=== PATIENT | male | born 1970 | race Caucasian/White ===

== ENCOUNTER → 2017-02-24 | Outpatient (CLI) | payer BC ==
--- NOTE | 2017-02-25 09:14 | PN ---
DATE OF SERVICE: 02/24/17 A 47-year-old gentleman who had been followed in the [facility] for treatment of obstructive sleep apnea-hypopnea syndrome. Patient successfully continued to use his CPAP unit. CPAP unit is about 8 years old. Does not show apnea- hypopnea index. According to patient, he feels well, does not snore. His weight is 23 pounds less than the visit in 2015. [place] Sleepiness scale is 4. MEDICATIONS: Zyrtec, levothyroxine, losartan, testosterone. During physical exam, patient in no distress. BP 133/78, HR 74, RR 16, height 5, 10, weight 281, BMI 40.3, temp 97.1, oxygen saturation from room air 97%. OROPHARYNX: Extremely low position of soft palpate. ABDOMEN: Obese. HEENT: PERRLA, EOMI. Evaluation of oropharynx showed tongue protrudes midline. NECK: Supple, No JVD. Thyroid is not palpable. LUNGS: Clear to percussion and to auscultation. Good air exchange. No wheezing or rhonchi. HEART: S1, s2 regular. No murmurs, gallops or rubs. EXTREMITIES: No clubbing or cyanosis. CONDUCTOR PULLMAN: Awake, alert, and oriented x3. Cranial nerves 2 to 7 intact. There is no fasciculation or atrophy noted. No focal deficits observed. IMPRESSION: 1. Obstructive sleep apnea-hypopnea syndrome in severe range. Patient continued to use CPAP equipment every night for the whole night. 2. Obesity. Patient lost about 23 pounds. 3. Hypertension. 4. 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 5. Status post nasal surgery about 6 years ago. 6. Status post left biceps tendon surgery. 7. Status post left elbow tendon surgery. PLAN: 1. Continue treatment with CPAP every night. 2. Prescription for all necessary CPAP supplies. 3. Prescription for new automatic CPAP machine unit. 4. No driving if feeling any sleepiness. 5. Sleep hygiene with regular time in bed for at least 8 hours. Thank you very much for allowing me to participate in the management of your patient. Sincerely, Meng Delaney MD, PhD, FAASM. Diplomat of [place] [employer], Sleep Medicine Board by [place] [employer] [place] [employer] Dispatcher of [facility] [place] [facility]
== END | disposition home or self-care (01) ==
LOC: SLEEP 16:24
PROVIDERS: ATTEND Internal Medicine
DX: G47.33 Obstructive sleep apnea (adult) (pediatric) (principal); E66.9 Obesity, unspecified; I10 Essential (primary) hypertension

== ENCOUNTER → 2017-04-02 | Outpatient (CLI) | payer BC | LOC: LABWHC1 12:24 | PROVIDERS: ATTEND Internal Medicine | DX: E03.9 Hypothyroidism, unspecified (principal); E29.1 Testicular hypofunction | CPT/HCPCS: 36415; 84402; 84403; 84439; 84443 ==

== ENCOUNTER → 2017-09-08 | Outpatient (CLI) | payer BC ==
--- NOTE | 2017-09-08 11:26 | PN ---
PROGRESS NOTE FOLLOW-UP VISIT DATE OF SERVICE: 09/08/2017 A 47-year-old gentleman had been followed in sleep center for treatment of obstructive sleep apnea-hypopnea syndrome. Patient successfully continued to use his CPAP equipment every night for the whole night without problems related to mask pressure or humidification. I checked his CPAP unit range of the pressure 5 to 15, most of the time pressure is 10.5. The patient demonstrated 100% compliance with treatment 30/30 nights more than 4 hours every 7.7 hours. Apnea-hypopnea index in the range of 2. No sleepiness during the day. [place] Sleepiness Scale is 4. MEDICATIONS: Zantac, levothyroxine, losartan, testosterone. PHYSICAL EXAM: During physical exam, patient in no distress. VITAL SIGNS: BP 135/82, HR 84, RR 16, height 5 feet 9-1/2 inches, weight 280, which is about the same as last year, body mass index 40.7, oxygen saturation room air 96%, temperature 8.2. NECK: Supple, no JVD. Thyroid is not palpable. LUNGS: Clear to percussion and to auscultation. Good air exchange. No wheezing or rhonchi. HEART: S1, S2 regular. No murmurs, gallops, or rubs. ABDOMEN: Obese. EXTREMITIES: No clubbing or cyanosis. FINANCIAL ANALYSIS CONSULTANT: Awake, alert, and oriented X3. Cranial nerves 2 to 7 intact. There is no fasciculation or atrophy. noted. No focal deficits observed. IMPRESSION: 1. Obstructive sleep apnea-hypopnea syndrome. Patient demonstrated 100% compliance with treatment. Respiration on full control with CPAP, benefitting from treatment. 2. Obesity. 3. Hypertension. 4. Status post nasal surgery about 1-1/2 years ago. 5. Status post left elbow tendon surgery. 6. Status post left biceps surgery. 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 PLAN: 1. Continue treatment with CPAP every night. 2. Losing weight. 3. Sleep hygiene with regular time in bed for at least 8 hours. 4. No driving if feeling any sleepiness. 5. Prescription for all necessary CPAP supplies including mask, tube, filters. Thank you very much for allowing me to participate in management of your patient. Sincerely, Meng Delaney MD, PhD, FAASM Diplomat of [place] [employer] Specialties [place] Board [employer] Internal Medicine Product Engineer of [facility] [place] MMODL / LESLIE: [id number] /
== END | disposition home or self-care (01) ==
LOC: SLEEP 10:09
PROVIDERS: ATTEND Internal Medicine
DX: G47.33 Obstructive sleep apnea (adult) (pediatric) (principal); E66.9 Obesity, unspecified; I10 Essential (primary) hypertension; Z87.09 Personal history of other diseases of the respiratory system; Z79.899 Other long term (current) drug therapy; Z99.89 Dependence on other enabling machines and devices; Z98.890 Other specified postprocedural states; Z68.41 Body mass index [BMI] 40.0-44.9, adult

== ENCOUNTER → 2019-09-06 | Outpatient (CLI) | payer BC, OTHER ==
--- NOTE | 2019-09-06 14:19 | CT ---
EXAMINATION TYPE: CT abdomen pelvis wo con DATE OF EXAM: 09/06/2019 COMPARISON: Prior CT dated 08/23/2019 from outside institution HISTORY: Left kidney mass CT DLP: 773.8 mGycm Automated exposure control for dose reduction was used. TECHNIQUE: Helical acquisition of images from the lung bases through the pelvis. FINDINGS: Lack of intravenous contrast compromises sensitivity. LUNG BASES: No significant abnormality is appreciated. AORTA: No significant abnormality is appreciated. LIVER/GB: No significant abnormality is appreciated. PANCREAS: No significant abnormality is seen. SPLEEN: No significant abnormality is seen. ADRENALS: No significant abnormality is seen. KIDNEYS: The left kidney has increased in volume. There is heterogeneity of the posterior aspect of t he left kidney and suggestion of crescentic mixed density, the left kidney measures approximately 12. 3 cm. The upper pole of the left kidney shows a low dense focuse measuring approximately 3.1 cm which I suspect represents a cortical cyst. REPRODUCTIVE ORGANS: No significant abnormality is seen. URINARY BLADDER: No significant abnormality is seen. BOWEL: No significant abnormality is seen. The appendix is normal. FREE AIR: No Free Air is visible. ASCITES: None visible. PELVIC ADENOPATHY: None visualized. RETROPERITONEAL ADENOPATHY: No Retroperitoneal Adenopathy visible. OSSEOUS STRUCTURES: No significant abnormality is seen. IMPRESSION: FINDINGS ARE SUSPICIOUS FOR SUBCAPSULAR HEMATOMA LEFT KIDNEY correlate for appropriate history. Addit ional findings above. A Red level critical message alert has been initiated for Patsy Fung MD via the [employer] Critical Results System on 09/06/2019 2:17 PM. This message alert has been sent to Gaurav Wild via the preferences provided by the clinician for the receipt of Radiology Critical Findings. [employer] ID [id number].
== END | disposition home or self-care (01) ==
LOC: RADCTMAIN 12:35
PROVIDERS: ATTEND Internal Medicine
DX: N28.89 Other specified disorders of kidney and ureter (principal)
CPT/HCPCS: 74176

== ENCOUNTER → 2019-10-12 | Outpatient (CLI) | payer BC, OTHER ==
[2019-10-12 10:57] LABS: African American GFR (CKD) >90 (>60 ml/min/1.73 sqM); Blood Urea Nitrogen 14 mg/dL (9-20); Non-African American GFR(CKD) >90 (>60 ml/min/1.73 sqM)
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
== END | disposition home or self-care (01) ==
LOC: RADCTMAIN 10:19
PROVIDERS: ATTEND Urology
DX: S37.012A Minor contusion of left kidney, initial encounter (principal)
CPT/HCPCS: 82565; 84520; 74170; 36415; Q9967

== ENCOUNTER 2020-05-30 07:41 | Day surgery (SDC) | payer BC, OTHER ==
[~2020-05-30 07:41] MED LIST: LACTATED RINGERS 1,000 ML IV SCH; LIDOCAINE 1% (10MG/ML) FOR IV START INTRADERMA PRN
[2020-05-30] MEDS ORDERED: LACTATED RINGERS 1,000 ML IV ONE ×2 (08:30)
[2020-05-30 08:36] VITALS: RESP 16; TEMP 97.1
[2020-05-30] MEDS ORDERED: PROPOFOL 10 MG/ML 20 ML VIAL IV ONE (09:10)
--- NOTE | 2020-05-30 09:28 | P.PCN ---
Date of Procedure: 05/30/20 Procedure(s) Performed: BRIEF HISTORY: Patient is a 50-year-old pleasant white male scheduled for an elective colonoscopy as a part of evaluation of change in bowel habits. PROCEDURE PERFORMED: Colonoscopy snare polypectomy. PREOPERATIVE DIAGNOSIS: Change in bowel habits. IV sedation per Anesthesia. PROCEDURE: After informed consent was obtained, the patient, was brought into the endoscopy unit. IV sedation was administered by Anesthesia under continuous monitoring. Digital rectal examination was normal. Initially the Olympus CF-160 flexible video colonoscope was then inserted in the rectum, gradually advanced into the cecum without any difficulty. Careful examination was performed as the scope was gradually being withdrawn. Ileocecal valve and the appendiceal orifice were visualized and appeared normal. Prep was excellent. The base of the cecum there was a 5 mm sessile polyp that was removed by snare polypectomy. Mucosa of the cecum, ascending colon, transverse colon, descending colon, sigmoid colon, and rectum appeared normal. Retroflexion was performed in the rectum and no lesi ons were seen. The patient tolerated the procedure well. IMPRESSION: 5 mm sessile cecal polyp status post polypectomy Rest of the colon appeared normal RECOMMENDATIONS: Findings of this examination were discussed with the patient as well as his family. He was advised to with the biopsy results. If the biopsy shows an adenoma he can have a repeat colonoscopy in 5 years
[2020-05-30 10:10] VITALS: BP 120/68; PULSE 73
== END 2020-05-30 10:49 | disposition home or self-care (01) ==
LOC: ORWHC2ENDO 07:41
PROVIDERS: ATTEND Internal Medicine Gastroenterology
DX: D12.0 Benign neoplasm of cecum (principal); Z79.890 Hormone replacement therapy; Z79.899 Other long term (current) drug therapy; I10 Essential (primary) hypertension; G47.33 Obstructive sleep apnea (adult) (pediatric); Z99.89 Dependence on other enabling machines and devices; E07.9 Disorder of thyroid, unspecified
CPT/HCPCS: 45385; 88305; J2704

== ENCOUNTER → 2021-11-19 | Outpatient (CLI) | payer BC ==
--- NOTE | 2021-11-19 15:53 | XR ---
Right finger HISTORY: Pain in right ring finger 2 views of the right finger are submitted, entire hand is included Bone mineralization, joint spaces and alignment are maintained. No fracture or dislocation. IMPRESSION: No significant bony abnormality is evident
== END | disposition home or self-care (01) ==
LOC: RADXRMAIN 14:47
PROVIDERS: ATTEND Internal Medicine
DX: M79.644 Pain in right finger(s) (principal)

== ENCOUNTER → 2024-10-03 | Outpatient (CLI) | payer BC ==
[2024-10-03 13:33] VITALS: BP 148/93; PULSE 77; RESP 12; TEMP 98.7
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
== END ==
LOC: 3 N SLEEP 13:08
PROVIDERS: ATTEND Internal Medicine
DX: G47.33 Obstructive sleep apnea (adult) (pediatric) (principal); E66.9 Obesity, unspecified; I10 Essential (primary) hypertension; E03.9 Hypothyroidism, unspecified; Z68.41 Body mass index [BMI] 40.0-44.9, adult; Z90.89 Acquired absence of other organs; Z98.890 Other specified postprocedural states
CPT/HCPCS: 99211

== ENCOUNTER → 2025-01-10 | Outpatient (CLI) | payer BC ==
[2025-01-10 15:40] VITALS: BP 149/86; PULSE 67; RESP 18; TEMP 97.6
--- NOTE | 2025-01-10 15:48 | P.PROGSL ---
Subjective DATE: 01/10/2025 FOLLOW UP VISIT. Patient with obstructive sleep apnea hypopnea syndrome return to sleep center for follow-up visit. Information from previous visit have been reviewed. Patient is using PAP equipment every night for the whole night, getting PAP supplies in time. The patient does not have significant problems with the mask, PAP unit and humidification. [place] sleepiness scale is 4, which is normal. I checked information from PAP unit. PAP unit pressure 5-15, average 9.7 cm H2O. Usage is 94% for more then 4 hours, average 7.3 hours per night. Leak is 10 l/m, which is in acceptable range. Apnea Hypopnea Index is 2.1, which is normal. MEDICATIONS have been reviewed, please see below. During physical exam: GENERAL: A pleasant patient without any distress. VITAL SIGNS: Please see below, weight is 274.2 lbs. HEENT: PERRLA, EOMI.low position of soft palate, Mallapati 4 . NECK: Supple. No JVD. LUNGS: Clear to percussion and to auscultation. Good air exchange. No wheezing or rhonchi. HEART: S1, S2 regular. ABDOMEN: Soft and nontender. Obese EXTREMITIES: No clubbing or cyanosis. MAJOR GIFTS OFFICER: Awake, alert, and oriented x3. No focal deficit. Impressions: 1. Obstructive sleep apnea-hypopnea syndrome. Patient demonstrated great compliance with treatment, benefiting from treatment. 2. Obesity. 3. Hypertension. 4. Hypothyroidism. 5. Status post nasal surgery. 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 8. Status post tonsillectomy. Plan: 1. Continue using PAP equipment every night for the whole night. 2. Sleep hygiene with regular time in bed for at least 7.5-8 hours 3. PAP unit should stay lower then position of the head. 4. Advised patient to remove all remaining water from humidifier canister daily and make it dry after each usage. Refill canister with fresh distilled water before each usage. 5. Watching and losing weight. 6. Precautions related to driving. No driving if feel any sleepiness. 7. I will maintain prescription for PAP supplies including mask, tube, filters. 8. Follow up visit in 8 months or earlier if patient has any problems. Thank you very much for allowing me to participate in the management of your patient. Meng Delaney MD, PhD, FAASM. Diplomat of [place] [employer] Sleep [employer], Sleep Medicine Board by [place] [employer] [place] Erector Helper of [facility] [place] Objective - Vital Signs Vital Signs: Vital Signs Temp 97.6 F 01/10/25 15:36 Pulse 67 01/10/25 15:36 Resp 18 01/10/25 15:36 BP 149/86 01/10/25 15:36 Pulse Ox 95 01/10/25 15:36 FiO2 Intake & Output 01/09/25 01/10/25 01/10/25 18:59 06:59 18:59 Weight 124.341 kg Home Medications: Home Medications Medication Instructions Recorded Confirmed Type Cetirizine HCl [Zyrtec] 10 mg PO QAM 05/29/20 05/30/20 History Levothyroxine Sodium [Synthroid] 75 mcg PO QAM 05/29/20 10/03/24 History Losartan [Cozaar] 50 mg PO DAILY 05/30/20 10/03/24 History
== END ==
LOC: 3 N SLEEP 15:22
PROVIDERS: ATTEND Internal Medicine
DX: G47.33 Obstructive sleep apnea (adult) (pediatric) (principal); E66.9 Obesity, unspecified; I10 Essential (primary) hypertension; E03.9 Hypothyroidism, unspecified; Z90.89 Acquired absence of other organs; Z98.890 Other specified postprocedural states; Z99.89 Dependence on other enabling machines and devices
CPT/HCPCS: 99212